=== PATIENT | male | born 1990 | race Caucasian/White ===

== ENCOUNTER → 2019-10-06 12:33 | Outpatient (BNVA) | payer OTHER, SELFPAY | PROVIDERS: Family Provider Internal Medicine; PCP Family Medicine; Visit Provider Nurse Practitioner | DX: J03.00 Acute streptococcal tonsillitis, unspecified (principal) | CPT/HCPCS: 87880 ==

== ENCOUNTER → 2019-10-26 11:22 | Outpatient (BNVA) | payer OTHER, SELFPAY | PROVIDERS: Family Provider Internal Medicine; PCP Family Medicine; Visit Provider Nurse Practitioner Family | DX: A49.1 Streptococcal infection, unspecified site (principal); R73.9 Hyperglycemia, unspecified; Z83.3 Family history of diabetes mellitus; R51 Headache; R42 Dizziness and giddiness | CPT/HCPCS: 80053; 83036; 85025 ==

== ENCOUNTER 2021-02-27 18:41 | Emergency (ER) | payer OTHER, SELFPAY ==
[2021-02-27 18:50] VITALS: BP 151/89; PULSE 77; RESP 14; TEMP 36.9; O2SAT 100; BMI 28.7
--- NOTE | 2021-02-27 19:59 | W.ED.WOUNDLC ---
HPI - Wound/Laceration General: Chief Complaint: Wound/Laceration Stated Complaint: Finger Injury on R. Hand Time Seen by Provider: 02/27/21 19:31 History of Present Illness: HPI narrative: Patient comes in for injury to the middle finger of the right hand on the dorsal aspect. Patient was trying a piece of plastic from a container when his knife blade slipped causing it to close onto his middle right finger. Patient has a laceration to the dorsal middle phalanx on the right hand. Patient has normal range of motion. Patient believes his tetanus is up-to-date. Patient denies any chronic medical problems. Review of Systems General: Reports: 10 or more systems reviewed and unremarkable except in HPI and below Skin/Breast: Reports: other (Laceration right middle finger.) PFSH ED PFSH: Family History (Updated 10/26/19 @ 10:34 by Cassy Holliday LPN) Mother Diabetes Hypertension Grandfather Hypertension Social History Smoking and tobacco status: current every day smoker smokeless tobacco Smokeless tobacco user: chewing tobacco Second hand smoke exposure: No Smoking risk assessment/counseling performed?: No Alcohol intake: current Alcohol intake frequency: few times a week Alcohol type: beer Desire information about alcohol rehabilitation?: No Counseling given: No Desire information about substance/drug rehabilitation?: No Counseling given: No Adopted: No Caregiver/support person: No Lives independently: Yes Household members: spouse and children Housing: House Marital status: Number of children: 2 Highest education level completed: High School Graduate service: Yes Current occupational status: employed Current occupational exposures/hazards: No Pets and animals: Yes History of recent travel: No Sexually active: Yes Current gender identity: Male Special regina needs: No Agree to transfusion: Yes Physical Exam Const: COMMON NORMALS: no acute distress and patient oriented x3 GENERAL APPEARANCE: cooperative HENMT: COMMON NORMALS: normocephalic and Normal external nose present HEAD & SCALP: normal to inspection and normocephalic NOSE: Normal external nose present Eye: GENERAL EYE: appearance normal, both eyes and all related structures Neck/C-Spine: COMMON NORMALS: full ROM Chest: COMMONS NORMALS: normal inspection of the chest Resp: COMMON NORMALS: normal respiratory effort EFFORT & INSPECTION: Yes able to speak in complete sentences Cardio: COMMON NORMALS: regular rate and regular rhythm RATE: regular rate RHYTHM: regular rhythm GI: COMMON NORMALS: non-tender Extremity: COMMON NORMALS: normal to inspection Neuro: COMMON NORMALS: patient oriented x3 and moves all extremities Psych: COMMON NORMALS: mental status grossly normal and cooperative Skin: NARRATIVE SKIN EXAM: 2 cm superficial laceration noted to the dorsal aspect of the right middle finger along the middle phalanx. Patient has normal range of motion, distal cap refill is intact, and normal sensation. No foreign body or fracture is noted. Procedures Laceration Laceration 1: Site: hand (Right middle finger) Side (If applicable): right Size (cm): 2 Description: linear Depth: simple, single layer Local Anesthetic: lidocaine 1% Amount of anesthesia used (mL): 1 Pre-repair: wound explored, irrigated extensively and deep structures intact Skin layer closed with: nylon Size (cm): 5-0 Number of sutures: 2 Technique: horizontal mattress Course Vital Signs: Vital signs: Vital Signs Temperature 98.4 F 02/27/21 18:50 Pulse Rate 77 02/27/21 18:50 Respiratory Rate 14 02/27/21 18:50 Blood Pressure 151/89 02/27/21 18:50 Pulse Oximetry 100 02/27/21 18:50 MDM - Wound/Laceration MDM Narrative: Medical decision making narrative: Patient came in for injury to the right middle finger. Patient on exam has a 2 cm laceration to the middle phalanx on the dorsal aspect of the right middle finger. Normal range of motion, no tendon injury, or foreign body was noted. Differential diagnosis includes but not limited to foreign body, fracture, need for prophylaxis tetanus. Patient believes his tetanus was up-to-date although could not provide a specific date of left immunization. Patient was offered tetanus vaccine but refused. Wound was closed with 2 horizontal mattress sutures patient tolerated well. Post procedure care was reviewed with patient who agreed to plan and recommendations for follow-up. Discharge Plan Discharge Patient Disposition: Home Clinical Impression: Laceration of finger Qualifiers: Encounter type: initial encounter Finger: middle finger Damage to nail status: without damage Foreign body presence: without foreign body Laterality: right Qualified Code(s): S61.212A - Laceration without foreign body of right middle finger without damage to nail, initial encounter Condition: Stable Discharge Orders: Discharge ED (Routine); Ordered 02/27/21 Ordered By: Jef Guadalupe Referrals: Angie Christian MD [Primary Care Provider] - Discharge Diet: Usual diet Discharge Activity: Increase activity as tolerated Patient Instructions: Opioid Safety, Stitches and Koko Care Activity Restrictions/Additional Instructions: Keep wound clean and dry as much as possible. Is important to keep the wound as dry as possible for the next 48 hours. After that she can gently wash the area with mild soap and water dry it thoroughly and wear dressing if you are going to get it soiled. Sutures out in 7 days. Follow-up with primary care in 1 week. Return to the emergency department for new concerns. Coding Level of Care Code ED Ophthalmic Technician for Franko Gibson
== END 2021-02-27 20:08 | disposition home or self-care (01) ==
PROVIDERS: Emergency Provider Nurse Practitioner Family; PCP Family Medicine
DX: S61.212A Laceration without foreign body of right middle finger without damage to nail, initial encounter (principal); W26.0XXA Contact with knife, initial encounter; F17.220 Nicotine dependence, chewing tobacco, uncomplicated
CPT/HCPCS: 12001; 99282

== ENCOUNTER 2022-03-11 14:00 | Emergency (ER) | payer OTHER, SELFPAY ==
[2022-03-11 14:07] VITALS: BP 177/119; PULSE 73; RESP 16; TEMP 37; O2SAT 96
--- NOTE | 2022-03-11 14:16 | W.ED.EXTPRO ---
HPI - Extremity Problem General: Chief complaint: Extremity Injury, Lower Stated complaint: Would like left foot xray Time Seen by Provider: 03/11/22 14:15 Source: patient Mode of arrival: ambulatory Limitations: no limitations History of Present Illness: Patient is a 31-year-old male who presents to ED today with a complaint of left foot pain over the past month. Patient has not had any known injury or trauma to the foot. He has not noticed any redness, swelling, or other skin changes to the foot. Pain seems to be worse with walking/weight-bearing. He was told it could be secondary to a stress fracture. MD Complaint: extremity pain Onset (ago): month(s) Pain Consistency: constant Location: left and lower extremity Radiation: none Relieving factors: immobilization Exacerbating factors: weight bearing and walking Associated symptoms: Reports no associated symptoms Review of Systems Musc: Reports: extremity pain; Denies: extremity swelling, joint pain, joint swelling, joint redness, joint warmth or joint stiffness Skin/Breast: Denies: erythema Neuro: Denies: numbness in extremities, weakness in extremities or sensory changes PFS ED PFSH: Family History Mother Diabetes Hypertension Grandfather Hypertension Social History Smoking and tobacco status: current every day smoker smokeless tobacco Smokeless tobacco user: chewing tobacco Second hand smoke exposure: No Smoking risk assessment/counseling performed?: No Alcohol intake: current Alcohol intake frequency: few times a week Alcohol type: beer Desire information about alcohol rehabilitation?: No Counseling given: No Desire information about substance/drug rehabilitation?: No Counseling given: No Adopted: No Caregiver/support person: No Lives independently: Yes Household members: spouse and children Housing: House Marital status: Number of children: 2 Highest education level completed: High School Graduate service: Yes Current occupational status: employed Current occupational exposures/hazards: No Pets and animals: Yes History of recent travel: No Sexually active: Yes Current gender identity: Male Special regina needs: No Agree to transfusion: Yes Physical Exam Const: COMMON NORMALS: no acute distress, patient oriented x3, no limitations and alert Extremity: COMMON NORMALS: capillary refill normal, no joint enlargement, no clubbing, cyanosis or edema, no calf tenderness and no pedal edema GENERAL: Yes normal exam except as noted LEFT LOWER EXTREMITY: Yes foot & digits OTHER: pt has point tenderness along shaft of 3-4 metatarsals; no bony deformity or swelling noted; no overlying skin changes; NV intact Neuro: COMMON NORMALS: patient oriented x3, moves all extremities, no focal motor deficits and no sensory deficits noted SENSORIUM/ORIENTATION: Yes alert Skin: COMMON NORMALS: no rashes or lesions noted GENERAL SKIN EXAM: no rashes or lesions noted TRAUMA: no lacerations or abrasions Course Vital Signs: Vital signs: Vital Signs Temperature 98.6 F 03/11/22 14:07 Pulse Rate 73 03/11/22 14:07 Respiratory Rate 16 03/11/22 14:07 Blood Pressure 177/119 03/11/22 14:07 Pulse Oximetry 96 03/11/22 14:07 MDM - Extremity (Nontraumatic) Medical Decision Making XR showing an accessory navicular. He does not seem to have much pain here. Symptoms do not seem consistent with a posterior tibialis tendinopathy however due to length of symptoms I think it is [facility] and possibly obtain a referral to see Dr. Wilkins/podiatry for further evaluation. Patient seems satisfied with this plan. Lab Data Radiology Impressions Foot X-Ray 03/11/22 14:31 IMPRESSION: Prominent type 2 accessory navicular. See discussion above. No acute findings otherwise. Discharge Plan Discharge Patient Disposition: Home Clinical Impression: Left foot pain, Accessory navicular bone of left foot Condition: Stable Discharge Orders: Discharge ED (Routine); Ordered 03/11/22 Ordered By: Bibi Finn Referrals: Angie Christian MD [Primary Care Provider] - Coding Level of Care Code ED Motors And Controls Tester for Chg Fwd Exam Expanded Problem Focused
--- NOTE | 2022-03-11 14:31 | XRR_ITS ---
PROCEDURE INFORMATION: Exam: XR Left Foot Exam date and time: 03/11/2022 2:37 PM Age: 31 years old Clinical indication: Pain; Foot; Left TECHNIQUE: Imaging protocol: XR Left foot. Views: 3 or more views. COMPARISON: No relevant prior studies available. FINDINGS: Bones/joints: There is a prominent type 2 accessory navicular measuring 19 x 14 mm. If there is a clinical concern for distal posterior tibialis tendon dysfunction or injury at the medial navicular, follow-up exam or MRI correlation may be helpful. Otherwise, there is no acute fracture or dislocation. Soft tissues: Normal. XR/XR foot LT min 3V* [id number] IMPRESSION: Prominent type 2 accessory navicular. See discussion above. No acute findings otherwise.
[2022-03-11 15:31] VITALS: BP 162/89; PULSE 64; O2SAT 95
== END 2022-03-11 15:30 | disposition home or self-care (01) ==
PROVIDERS: Emergency Provider Physician Assistant; PCP Family Medicine
DX: M79.672 Pain in left foot (principal); Q74.2 Other congenital malformations of lower limb(s), including pelvic girdle
CPT/HCPCS: 73630; 99283

== ENCOUNTER → 2022-03-28 09:46 | Outpatient (BNVA) | payer OTHER, SELFPAY | PROVIDERS: PCP Family Medicine; Referring Provider Family Medicine; Visit Provider Podiatrist Foot & Ankle Surgery | DX: M77.42 Metatarsalgia, left foot (principal); M79.672 Pain in left foot | CPT/HCPCS: 73620; 99204 ==

== ENCOUNTER → 2022-05-22 07:35 | Outpatient (BNVA) | payer OTHER, SELFPAY | PROVIDERS: PCP Family Medicine; Visit Provider Podiatrist Foot & Ankle Surgery | DX: M79.672 Pain in left foot (principal); M77.42 Metatarsalgia, left foot | CPT/HCPCS: 99213 ==

== ENCOUNTER 2023-05-04 12:25 | Emergency (ER) | payer OTHER, SELFPAY ==
--- NOTE | 2023-05-04 12:27 | XRR_ITS ---
PROCEDURE INFORMATION: Exam: XR Left Wrist Exam date and time: 05/04/2023 12:44 PM Age: 32 years old Clinical indication: Injury or trauma; Fall; Work related; Blunt trauma (contusions or hematomas); Wrist; Bilateral; Additional info: Pain after fall TECHNIQUE: Imaging protocol: Radiologic exam of the left wrist. Views: 3 or more views. COMPARISON: No relevant prior studies available. FINDINGS: Bones/joints: There is a fracture of the distal radius extending subtly to the articular surface. The fracture is mostly transverse with a small vertical component. Radiocarpal alignment is intact. Soft tissues: Normal. XR/XR wrist LT min 3V* [id number] IMPRESSION: Distal radial fracture.
--- NOTE | 2023-05-04 12:27 | XRR_ITS ---
PROCEDURE INFORMATION: Exam: XR Right Wrist Exam date and time: 05/04/2023 12:44 PM Age: 32 years old Clinical indication: Injury or trauma; Fall; Blunt trauma (contusions or hematomas); Wrist; Bilateral; Additional info: Pain after fall TECHNIQUE: Imaging protocol: Radiologic exam of the right wrist. Views: 3 or more views. COMPARISON: No relevant prior studies available. FINDINGS: Bones/joints: There is a minimally displaced fracture of the distal radius with a subtle extension to the articulating surface. The ulna and radial carpal alignment are unremarkable. Soft tissues: Normal. XR/XR wrist RT min 3V* [id number] IMPRESSION: Distal radial fracture.
[2023-05-04 12:42] VITALS: BP 180/121; PULSE 66; RESP 18; TEMP 37; O2SAT 99
--- NOTE | 2023-05-04 12:42 | XRR_ITS ---
PROCEDURE INFORMATION: Exam: XR Left Knee Exam date and time: 05/04/2023 12:55 PM Age: 32 years old Clinical indication: Injury or trauma; Fall; Blunt trauma; Knee; Left; Additional info: Fall, landing on knee TECHNIQUE: Imaging protocol: Radiologic exam of the left knee. Views: 3 views. COMPARISON: No relevant prior studies available. FINDINGS: Bones/joints: Normal. Soft tissues: Normal. XR/XR knee LT 3V* [id number] IMPRESSION: No acute findings.
--- NOTE | 2023-05-04 12:42 | W.ED.FALL ---
HPI - Fall General: Chief Complaint: Extremity Injury, Upper Stated Complaint: Fall/ RT/LT wrist inj Time Seen by Provider: 05/04/23 12:28 Source: patient Mode of arrival: ambulatory Limitations: no limitations History of Present Illness: 32-year-old male presents to the ER today for bilateral wrist pain and left knee pain after fall yesterday. 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 Patient reports it was more over an edge however he landed with both wrists outstretched and hitting his left knee. Patient reports he had significant swelling and pain yesterday however he went to give it some time to see if when the swelling went down the pain would improve. Patient reports swelling is down some this morning however pain persist. Patient reports pain with any movement of the wrist. He is able to move fingers and elbows with minimal pain. Denies any numbness or tingling. Denies any bruising. Patient reports pain above the left knee On the medial side. He has some abrasions also to this knee. Patient reports worse with range of motion and movement and also to touch. Denies any prior injury to these areas. Review of Systems General: Reports: 10 or more systems reviewed and unremarkable except in HPI and below PFSH ED PFSH: Family History Mother Diabetes Hypertension Grandfather Hypertension Social History Smoking and tobacco status: never smoked Second hand smoke exposure: No Smoking risk assessment/counseling performed?: No Alcohol intake: current Alcohol intake frequency: few times a week Alcohol type: beer Desire information about alcohol rehabilitation?: No Counseling given: No Substance/Drug Use: never Desire information about substance/drug rehabilitation?: No Counseling given: No Adopted: No Caregiver/support person: No Lives independently: Yes Household members: spouse and children Housing: House Marital status: Number of children: 2 Highest education level completed: High School Graduate service: Yes Current occupational status: employed Current occupational exposures/hazards: No Pets and animals: Yes Sexually active: Yes Do you think of yourself as: Straight/Heterosexual Current gender identity: Male Special regina needs: No Agree to transfusion: Yes Physical Exam Const: COMMON NORMALS: no acute distress, average body habitus, patient oriented x3, no limitations, healthy appearing, alert and well nourished HENMT: COMMON NORMALS: normocephalic, atraumatic, external ears normal, Normal external nose present and moist oral mucous membranes HEAD & SCALP: normocephalic and atraumatic NOSE: Normal external nose present EXTERNAL EAR: Yes external ears normal Neck/C-Spine: COMMON NORMALS: full ROM and no lymphadenopathy CERVICAL SPINE: Yes cervical ROM normal Chest: COMMONS NORMALS: normal inspection of the chest and normal palpation of entire chest wall Resp: COMMON NORMALS: normal respiratory effort EFFORT & INSPECTION: Yes able to speak in complete sentences Cardio: COMMON NORMALS: regular rate and regular rhythm RATE: regular rate RHYTHM: regular rhythm Extremity: NARRATIVE EXTREMITY EXAM: Patient has mild swelling noted to bilateral wrist with tenderness to palpation over that area. No obvious swelling. No bruising noted to the wrist. Normal pulses bilaterally. Patient also has swelling noted over the left kneecap medially. Patient noted to have some bruising in that area and also tenderness to palpation over that area. Neuro: COMMON NORMALS: patient oriented x3 SENSORIUM/ORIENTATION: Yes alert Psych: COMMON NORMALS: mental status grossly normal, Normal thought process present and cooperative THOUGHT PROCESS: Normal thought process present Skin: NARRATIVE SKIN EXAM: Abrasions noted to left knee. Course ED course: Patient presents the ER after a fall yesterday. Patient has bilateral wrist pain and left knee pain. He tried giving it 24 hours however the pain persisted. Swelling slightly better in the wrist today. We will go ahead and x-ray the wrists and knee. Vital Signs: Vital signs: Vital Signs Temperature 98.6 F 05/04/23 12:42 Pulse Rate 66 05/04/23 12:42 Respiratory Rate 18 05/04/23 12:42 Blood Pressure 180/121 05/04/23 12:42 Pulse Oximetry 99 05/04/23 12:42 Oxygen Delivery Me thod Room Air 05/04/23 12:42 MDM - Fall Medical Decision Making Patient is noted to have fractures of bilateral distal radius without any significant angulation or displacement. Patient was placed in bilateral splints and we will have him follow-up with orthopedics this week. Patient appears to have a left knee contusion but no acute fractures or dislocations. Recommended ice and ibuprofen. Elevate wrist to avoid and reduce swelling. Splint care was discussed. Follow-up with Ortho as discussed. Return to the ER with any new or worsening symptoms. Patient given tramadol for pain to take at home. Patient verbalized understanding and was in agreement with the treatment plan. Lab Data Radiology Impressions Wrist X-Ray 05/04/23 12:27 IMPRESSION: Distal radial fracture. Critical Care Time Critical Care Time: Critical Care Time: No Discharge Plan Discharge Patient Disposition: Home Clinical Impression: Distal radius fracture, left Qualifiers: Encounter type: initial encounter Fracture type: closed Fracture morphology: unspecified fracture morphology Qualified Code(s): S52.502A - Unspecified fracture of the lower end of left radius, initial encounter for closed fracture Distal radius fracture, right Qualifiers: Encounter type: initial encounter Fracture type: closed Fracture morphology: unspecified fracture morphology Qualified Code(s): S52.501A - Unspecified fracture of the lower end of right radius, initial encounter for closed fracture Contusion of knee, left Qualifiers: Encounter type: initial encounter Qualified Code(s): S80.02XA - Contusion of left knee, initial encounter Condition: Stable Prescriptions: New tramadol 50 mg tablet 50 mg PO TID PRN (Reason: pain) Qty: 15 0RF No Action (DME) Low profile carbon fiber custom arch support See Rx Instructions .Route .MEDSUPPLY Qty: 1 0RF Rx Instructions: As directed BY DEWAYNE&O Discharge Orders: Discharge ED (Routine); Ordered 05/04/23 Ordered By: Yue Puentes Referrals: Angie Christian MD [Primary Care Provider] - Discharge Diet: Usual diet Discharge Activity: Limit activity as instructed Patient Instructions: Opioid Safety, Pain Management Activity Restrictions/Additional Instructions: Take Tramadol for pain as prescribed. Ice and elevate to reduce swelling. F/U with ortho this week (they will contact you with appt). Splint care as discussed (do not get wet). Return to the ER with any new or worsening symptoms. Coding Level of Care Code ED Social Media Marketing Specialist for Franko Gibson
--- NOTE | 2023-05-05 08:41 | DCPLANNER ---
Addendum entered by Saranya Ovalle 05/07/23 09:03: Patient had a follow up appointment scheduled with ortho - patient did attend appointment. Original Note: bar manager had message to schedule a follow up appointment for patient with ortho. bar manager sent patients information to the front office staff at ortho. Patients information will be printed and reviewed. Clinic will call patient with appointment information.
== END 2023-05-04 14:17 | disposition home or self-care (01) ==
PROVIDERS: Emergency Provider Physician Assistant; PCP Family Medicine
DX: S80.02XA Contusion of left knee, initial encounter (principal); S52.502A Unspecified fracture of the lower end of left radius, initial encounter for closed fracture; S52.501A Unspecified fracture of the lower end of right radius, initial encounter for closed fracture; W17.89XA Other fall from one level to another, initial encounter
CPT/HCPCS: 73110; 73562; 99284

== ENCOUNTER → 2023-05-06 14:48 | Outpatient (BNVA) | payer OTHER, SELFPAY | PROVIDERS: PCP Family Medicine; Referring Provider Physician Assistant; Visit Provider Student in an Organized Health Care Education/Training Program | DX: S52.501A Unspecified fracture of the lower end of right radius, initial encounter for closed fracture (principal); S52.502A Unspecified fracture of the lower end of left radius, initial encounter for closed fracture; W13.4XXA Fall from, out of or through window, initial encounter | CPT/HCPCS: 73110 ==

== ENCOUNTER 2023-05-06 16:21 | Outpatient (CLI) | payer OTHER, SELFPAY | END 2023-05-06 16:22 | disposition home or self-care (01) | LOC: SPT 16:22 | PROVIDERS: PCP Family Medicine; Visit Provider Student in an Organized Health Care Education/Training Program | DX: Z46.89 Encounter for fitting and adjustment of other specified devices (principal); S52.502D Unspecified fracture of the lower end of left radius, subsequent encounter for closed fracture with routine healing; S52.501D Unspecified fracture of the lower end of right radius, subsequent encounter for closed fracture with routine healing; W13.4XXD Fall from, out of or through window, subsequent encounter | CPT/HCPCS: 25520; 97760; 99204; L3982 ==

== ENCOUNTER → 2023-05-13 14:45 | Outpatient (BNVA) | payer OTHER, SELFPAY | PROVIDERS: PCP Family Medicine; Visit Provider Physician Assistant | DX: S52.502A Unspecified fracture of the lower end of left radius, initial encounter for closed fracture (principal); S52.501A Unspecified fracture of the lower end of right radius, initial encounter for closed fracture; W13.4XXA Fall from, out of or through window, initial encounter | CPT/HCPCS: 73110; 99213 ==

== ENCOUNTER → 2023-05-20 15:00 | Outpatient (BNVA) | payer OTHER, SELFPAY | PROVIDERS: PCP Family Medicine; Visit Provider Physician Assistant | DX: S52.501A Unspecified fracture of the lower end of right radius, initial encounter for closed fracture (principal); S52.502A Unspecified fracture of the lower end of left radius, initial encounter for closed fracture; X58.XXXA Exposure to other specified factors, initial encounter; M25.532 Pain in left wrist | CPT/HCPCS: 73110; 73130; 99213 ==

== ENCOUNTER → 2023-05-21 07:30 | Outpatient (BNVA) | payer OTHER, SELFPAY | PROVIDERS: PCP Family Medicine; Visit Provider Podiatrist Foot & Ankle Surgery | DX: B35.3 Tinea pedis (principal); M77.40 Metatarsalgia, unspecified foot | CPT/HCPCS: 99214 ==

== ENCOUNTER → 2023-06-17 14:40 | Outpatient (BNVA) | payer OTHER, SELFPAY | PROVIDERS: PCP Family Medicine; Visit Provider Physician Assistant | DX: S62.101A Fracture of unspecified carpal bone, right wrist, initial encounter for closed fracture (principal); S62.102A Fracture of unspecified carpal bone, left wrist, initial encounter for closed fracture; X58.XXXA Exposure to other specified factors, initial encounter | CPT/HCPCS: 73110 ==

== ENCOUNTER 2023-06-17 16:01 | Outpatient (CLI) | payer OTHER, SELFPAY | END 2023-06-17 16:02 | disposition home or self-care (01) | LOC: SPT 16:01 | PROVIDERS: PCP Family Medicine; Visit Provider Physician Assistant | DX: Z46.89 Encounter for fitting and adjustment of other specified devices (principal); S62.101D Fracture of unspecified carpal bone, right wrist, subsequent encounter for fracture with routine healing; S62.102D Fracture of unspecified carpal bone, left wrist, subsequent encounter for fracture with routine healing; X58.XXXD Exposure to other specified factors, subsequent encounter | CPT/HCPCS: 97760; 99213; L3908 ==

== ENCOUNTER 2023-06-19 10:02 | Outpatient (RCR) | payer OTHER, SELFPAY | END 2023-06-28 23:59 | disposition home or self-care (01) | LOC: SOT 10:02 | PROVIDERS: PCP Family Medicine; Visit Provider Physician Assistant | DX: S62.101D Fracture of unspecified carpal bone, right wrist, subsequent encounter for fracture with routine healing (principal); W17.89XD Other fall from one level to another, subsequent encounter | CPT/HCPCS: 97022; 97110; 97140; 97165; 97530 ==

== ENCOUNTER 2023-06-29 06:00 | Outpatient (RCR) | payer OTHER, SELFPAY | END 2023-07-29 23:59 | disposition home or self-care (01) | LOC: SOT 06:00 | PROVIDERS: PCP Family Medicine; Visit Provider Physician Assistant | DX: S62.101D Fracture of unspecified carpal bone, right wrist, subsequent encounter for fracture with routine healing (principal); X58.XXXD Exposure to other specified factors, subsequent encounter | CPT/HCPCS: 97022; 97110; 97140 ==

== ENCOUNTER → 2024-05-26 07:19 | Outpatient (BNVA) | payer OTHER, SELFPAY | PROVIDERS: PCP Family Medicine; Visit Provider Podiatrist Foot & Ankle Surgery | DX: M77.41 Metatarsalgia, right foot; M77.42 Metatarsalgia, left foot | CPT/HCPCS: 99213 ==

== ENCOUNTER 2024-12-08 09:46 | Emergency (ER) | payer OTHER, SELFPAY ==
[2024-12-08 10:00] VITALS: BP 179/108; PULSE 76; RESP 17; TEMP 36.5; O2SAT 95
--- NOTE | 2024-12-08 10:05 | ED_ITS ---
HPI - Wound/Laceration General: Chief Complaint: Wound/Laceration Stated Complaint: cut left knee with chain saw Time Seen by Provider: 12/08/24 09:46 Source: patient Mode of arrival: ambulatory Limitations: no limitations History of Present Illness: 34-year-old male states he was cutting d own limbs and his chainsaw kicked back and hit him in the left knee. Does have a laceration to his left knee is roughly 5 cm bleeding is controlled he is able ambulate he is unsure when his last tetanus was rates his pain a 6 out of 10 currently Associated symptoms: Denies chills, fever(s), nausea or vomiting Related Data Previous Rx's ?Medication ?Instructions ?Recorded Low profile carbon fiber custom #1 ea 03/28/22 arch support tramadol 50 mg tablet 50 mg PO TID PRN pain #15 ta bs 05/04/23 COCK UP SPLINT #2 ea 05/06/23 terbinafine HCl 250 mg tablet 250 mg PO BID 4 weeks #5 6 tabs 05/21/23 triamcinolone acetonide 0.1 % 1 applic topical TID #30 grams 05/21/23 topical cream cock up splint #2 ea 06/17/23 sole supports #1 ea 05/26/24 Custom Orthotics #1 ea 08/05/24 Allergies Allergy/AdvReac Type Severity Reaction Status Date / Time No Known Allergies Allergy Verified 05/25/24 16:00 Review of Systems Const: Denies: fever(s), chills, body aches or change in appetite ENMT: Denies: throat pain or dental pain Card: Denies: chest pain Resp: Denies: dyspnea GI: Denies: abdominal pain, nausea, vomiting or diarrhea Musc: Denies: neck pain or back pain Skin/Breast: Denies: rash Neuro: Denies: headache(s) PFSH ED PFSH: Family History Mother Diabetes Hypertension Grandfather Hypertension Social History Smoking and tobacco/nicotine status: never used tobacco/nicotine Second hand smoke exposure: No Alcohol intake: current Alcohol intake frequency: few times a week Alcohol type: beer Substance/Drug Use: never Adopted: No Caregiver/support person: No Lives independently: Yes Household members: spouse and children Housing: House Marital status: Number of children: 2 Highest education level completed: High School Graduate service: Yes Current occupational status: employed Current occupational exposures/hazards: No Pets and animals: Yes Sexually active: Yes Do you think of yourself as: Straight/Heterosexual Current gender identity: Male Special regina needs: No Agree to transfusion: Yes Physical Exam Const: COMMON NORMALS: no acute distress, patient oriented x3 and healthy appe aring HENMT: COMMON NORMALS: normocephalic and atraumatic HEAD & SCALP: normocephalic and atraumatic Eye: COMMON NORMALS: conjunctivae normal CONJUNCTIVA: Yes conjunctivae normal Neck/C-Spine: COMMON NORMALS: full ROM and supple Chest: COMMONS NORMALS: normal inspection of the chest Resp: COMMON NORMALS: normal respiratory effort Cardio: COMMON NORMALS: regular rate RATE: regular rate Extremity: COMMON NORMALS: full ROM NARRATIVE EXTREMITY EXAM: 5 cm laceration to left knee does not in volve the joint Neuro: COMMON NORMALS: patient oriented x3, moves all extremities and no focal motor deficits Psych: COMMON NORMALS: mental status grossly normal, Normal thought process present and cooperative THOUGHT PROCESS: Normal thought process present Skin: COMMON NORMALS: no rashes or lesions noted and no wounds GENERAL SKIN EXAM: no rashes or lesions noted Procedures Laceration Laceration 1: Site: lower extremity Side (If applicable): left Size (cm): 5 Description: linear Depth: simple, single layer Local Anesthetic: lidocaine 1% Amount of anesthesia used (mL): 10 Pre-repair: wound explored, irrigated extensively and deep structures intact Size (cm): 3-0 Number of sutures: 5 Technique: simple, interrupted Course Vital Signs: Vital signs: Vital Signs Temperature 97.7 F 12/08/24 10:00 Pulse Rate 76 12/08/24 10:00 Respiratory Rate 17 12/08/24 10:00 Blood Pressure 179/108 12/08/24 10:00 Pulse Oximetry 95 12/08/24 10:00 Oxygen Delivery Me thod Room Air 12/08/24 10:00 MDM - Wound/Laceration Medical Decision Making Patient presents here with laceration to the left knee wound was sutured superficial nature did not involve the joint he is to have the sutures removed in 2 weeks return if worsening he understands agrees to plan Medical Records I reviewed the patient's medical records. No radiology studies performed this visit Discharge Plan Discharge Patient Disposition: Home Clinical Impression: Laceration Condition: Stable Prescriptions: No Action (DME) Low profile carbon fiber custom arch support See Rx Instructions .Route .MEDSUPPLY Qty: 1 0RF Rx Instructions: As directed BY [facility] (DME) COCK UP SPLINT See Rx Instructions .Route .MEDSUPPLY Qty: 2 0RF Rx Instructions: As directed triamcinolone acetonide 0.1 % cream 1 applic topical TID Qty: 30 2RF terbinafine HCl 250 mg tablet 250 mg PO BID 28 Days Qty: 56 0RF (DME) cock up splint See Rx Instructions .Route .MEDSUPPLY Qty: 2 0RF Rx Instructions: As directed (DME) sole supports See Rx Instructions .Route .MEDSUPPLY Qty: 1 0RF Rx Instructions: As directed (DME) Custom Orthotics See Rx Instructions .Route .MEDSUPPLY Qty: 1 0RF Rx Instructions: As directed by [facility] tramadol 50 mg tablet 50 mg PO TID PRN (Reason: pain) Qty: 15 0RF Discharge Orders: Discharge ED (Routine); Ordered 12/08/24 Ordered By: Osvaldo Dye Referrals: Angie Christian MD [Primary Care Provider] - 2 weeks Discharge Diet: Advance as tolerated Discharge Activity: Resume usual activity Patient Instructions: Laceration (ED) Activity Restrictions/Additional Instructions: suture removal in 2 weeks Print Language: Lithuanian Coding Level of Care Code 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
[2024-12-08] MEDS: tetanus-dipt-pertussis 0.5 mL SDV IM (10:13)
[2024-12-08 10:18] VITALS: BP 168/100; PULSE 74; O2SAT 95
[2024-12-08 10:27] VITALS: BP 168/100; PULSE 74; O2SAT 95
== END 2024-12-08 10:28 | disposition home or self-care (01) ==
PROVIDERS: Emergency Provider Emergency Medicine; PCP Family Medicine
DX: S81.012A Laceration without foreign body, left knee, initial encounter (principal); W22.8XXA Striking against or struck by other objects, initial encounter; Z23 Encounter for immunization
CPT/HCPCS: 12004; 90471; 90715; 99283

== ENCOUNTER → 2025-05-25 07:28 | Outpatient (BNVA) | payer OTHER, SELFPAY | PROVIDERS: PCP Family Medicine; Visit Provider Podiatrist Foot & Ankle Surgery | DX: M77.41 Metatarsalgia, right foot (principal); M77.42 Metatarsalgia, left foot; I10 Essential (primary) hypertension; M21.621 Bunionette of right foot; M21.622 Bunionette of left foot; M20.41 Other hammer toe(s) (acquired), right foot; M20.42 Other hammer toe(s) (acquired), left foot | CPT/HCPCS: 99213 ==

== ENCOUNTER 2025-07-30 05:00 | Outpatient (RCR) | payer OTHER, SELFPAY | END 2025-08-28 23:59 | disposition home or self-care (01) | LOC: SPT 05:00 | PROVIDERS: Visit Provider Family Medicine | DX: M54.50 Low back pain, unspecified (principal) | CPT/HCPCS: 97110; 97161 ==

== ENCOUNTER 2025-08-29 05:00 | Outpatient (RCR) | payer OTHER, SELFPAY | END 2025-09-28 23:59 | disposition home or self-care (01) | LOC: SPT 05:00 | PROVIDERS: Visit Provider Family Medicine | DX: M54.50 Low back pain, unspecified (principal) | CPT/HCPCS: 97110 ==